=== PATIENT | female | born 1940 | race Caucasian/White ===

== ENCOUNTER → 2017-02-13 19:40 | Outpatient (CLI) | payer MEDICARE ==
[2011-04-02 23:24] VITALS: BMI 41.0
== END | disposition home or self-care (01) ==
LOC: D.LABREF 19:40
DX: M25.571 Pain in right ankle and joints of right foot (principal)

== ENCOUNTER → 2017-02-14 09:32 | Outpatient (CLI) | payer MEDICARE ==
[2011-04-02 23:24] VITALS: BMI 41.0
== END | disposition home or self-care (01) ==
LOC: D.US 09:32 → D.CT 11:00
DX: R60.0 Localized edema (principal); M25.571 Pain in right ankle and joints of right foot

== ENCOUNTER 2017-04-16 17:05 | Inpatient (IN) | payer MEDICARE ==
[~2017-04-16] VITALS: Ht 166.4 cm; Wt 105.0 kg
[2017-04-16 18:37] LABS: APPEARANCE CLEAR (CLEAR); BILIRUBIN NEGATIVE (NEGATIVE); COLOR YELLOW (YELLOW); GLUCOSE NEGATIVE (NEGATIVE); KETONE NEGATIVE (NEGATIVE); LEUKOCYTE ESTERASE TRACE (NEGATIVE); NITRITE NEGATIVE (NEGATIVE); PROTEIN NEGATIVE (NEGATIVE); UROBILINOGEN NORMAL (NORMAL)
[2017-04-16 18:38] LABS: WHITE CELLS - URINE 0-5 /hpf (0-5)
[2017-04-16 18:39] LABS: UDS - AMPHET NEGATIVE QUAL (NEGATIVE); UDS - BARB NEGATIVE QUAL (NEGATIVE); UDS - BENZO NEGATIVE QUAL (NEGATIVE); UDS - COCAINE NEGATIVE QUAL (NEGATIVE); UDS - METH NEGATIVE QUAL (NEGATIVE); UDS - OPIATE NEGATIVE QUAL (NEGATIVE); UDS - PCP NEGATIVE QUAL (NEGATIVE); UDS - THC NEGATIVE QUAL (NEGATIVE)
[2017-04-16 18:40] LABS: BACTERIA MODERATE /hpf (NONE SEEN); EPITHELIAL CELLS 0-5 /hpf (0-5)
[2017-04-16 18:41] LABS: BASOPHILS 0.2 % (0-2); EOSINOPHILS 1.3 % (0-7); HEMATOCRIT 38.7 % (36.0-48.0); HEMOGLOBIN 12.5 g/dL (12-16); IMMATURE GRANULOCYTES 0.3 % (0-5); LYMPHOCYTES 20.7 % (15-50); MCH 27.8 pg (26.0-34.0); MCHC 32.3 g/dL (31.0-37.0); MEAN PLATELET VOLUME 11.6 fL (7.4-10.4); MONOCYTES 7.9 % (2-11); NEUTROPHILS 69.6 % (40-80); PLATELET COUNT 242 10x3/uL (130-400); RDW 13.7 % (11.5-14.5); WBC 9.7 10x3/uL (4.8-10.8)
[2017-04-16 18:54] LABS: ALBUMIN 3.7 g/dL (3.4-5.0); ANION GAP 15.9 mmol/L (8-16); BILIRUBIN - TOTAL 0.2 mg/dL (0.2-1.3); CALCIUM 9.6 mg/dL (8.5-10.1); CARBON DIOXIDE 24.8 mmol/L (21.0-32.0); CREATININE - SERUM 1.1 mg/dL (0.6-1.3); POTASSIUM - SERUM 3.7 mmol/L (3.5-5.1); PROTEIN - SERUM 6.6 g/dL (6.4-8.2)
--- NOTE | 2017-04-17 00:43 | NUR ---
Recieved patient at 2245 from E[facility] accompanied by staff and her daughter, alert and oriented to self and being in a hospital, code word set, code status full code, physician aware, patient had become aggressive with spouse and verbally abusive, will continue to monitor.
[2017-04-17] MEDS ORDERED: LISINOPRIL10 MG PO (02:43)
[2017-04-17] MEDS ORDERED: FENOFIBRATE160 MG PO (02:43)
[2017-04-17] MEDS ORDERED: PROZAC20 MG PO (02:44)
[2017-04-17] MEDS ORDERED: K-DUR20 MEQ PO (02:44)
[2017-04-17] MEDS ORDERED: VITAMIN D250000 UNIT PO (02:46)
[2017-04-17] MEDS ORDERED: ULTRAM50 MG PO (02:46)
[2017-04-17] MEDS ORDERED: OCUVITE TABLET1 TA1 PO (02:47)
[2017-04-17] MEDS ORDERED: FISH OIL 1,2001 CAP PO (02:48)
[2017-04-17 04:53] VITALS: BP 149/61; BMI 37.9
[2017-04-17 07:09] LABS: BASOPHILS 0.1 % (0-2); EOSINOPHILS 1.3 % (0-7); HEMATOCRIT 36.6 % (36.0-48.0); HEMOGLOBIN 11.9 g/dL (12-16); IMMATURE GRANULOCYTES 0.2 % (0-5); LYMPHOCYTES 22.1 % (15-50); MCH 27.6 pg (26.0-34.0); MCHC 32.5 g/dL (31.0-37.0); MCV 84.9 fL (80.0-100.0); MEAN PLATELET VOLUME 11.3 fL (7.4-10.4); MONOCYTES 7.1 % (2-11); NEUTROPHILS 69.2 % (40-80); PLATELET COUNT 242 10x3/uL (130-400); RBC 4.31 10x6/uL (4.00-5.40); RDW 13.6 % (11.5-14.5); WBC 8.5 10x3/uL (4.8-10.8)
[2017-04-17 07:24] LABS: HEMOGLOBIN A1C 6.5 % (4.8-6.0)
[2017-04-17 07:42] LABS: ALBUMIN 3.3 g/dL (3.4-5.0); ANION GAP 12.6 mmol/L (8-16); BILIRUBIN - TOTAL 0.37 mg/dL (0.2-1.3); CALCIUM 8.9 mg/dL (8.5-10.1); CARBON DIOXIDE 25.8 mmol/L (21.0-32.0); CHOL - HDL RATIO 3.5 ratio (2.3-4.1); LDL-HDL RATIO 1.9 ratio (1.5-3.5); POTASSIUM - SERUM 3.4 mmol/L (3.5-5.1); PROTEIN - SERUM 6.4 g/dL (6.4-8.2); THYROID STIMULATING HORMONE 1.08 uIU/mL (0.36-3.74)
--- NOTE | 2017-04-17 09:10 | NUR ---
B) PATIENT IS AWAKE AND ALERT, SHE IS DEMANDING, SHE DID HAVE DIARRHEA AND SHE DOES SAY SHE WANTS TO BE TESTED FOR C-DIFF, DID PROVIDE PATIENT WITH A [place] HAT AND A SAMPLE CUP. PATIENT AMBULATES, SHE IS IN A MANIC PHASE OF HER BIPOLAR AND JUST TALKS AND TALKS. I) PROVIDE PRESCRIBED MEDS. R) PATIENT IS COMPLIANT WITH MEDS. P) CONTINUE PLAN OF CARE.
[2017-04-17 10:29] VITALS: BMI 37.8
--- NOTE | 2017-04-17 21:00 | NUR ---
RECEIVED IN DINING ROOM SITTING IN CHAIR AT THE TABLE WITH PEERS. AWAKE AND ALERT, PLEASANT AND TALKATIVE. NO AGGRESSION NOTED. ADMINISTER PRESCRIBED MEDS. VSS. MEDICATION COMPLIANT. MAINTAIN SAFETY PRECAUTIONS. WILL CONTINUE PLAN OF CARE.
[2017-04-17 22:04] VITALS: BP 124/58
[2017-04-18 06:15] LABS: RAPID PLASMA REAGIN Non Reactive (Non Reactive)
[2017-04-18 07:27] LABS: FOLATE (FOLIC ACID) - SERUM 10.6 ng/mL (>3.0); VITAMIN D 25 HYDROXY 35.6 ng/mL (30.0-100.0)
[2017-04-18 09:48] VITALS: BP 122/50
[2017-04-18 14:29] VITALS: Ht 166.4 cm; Wt 105.0 kg
--- NOTE | 2017-04-18 15:53 | NUR ---
Received this am alert and oriented to name and place but not situation. Redirect and reorient as need. Monitor for any changes in behavior. Encourage group participation and monitor safety. Compliant with medications, patient is hyperverbal, intrusive and very social with peers. No aggression. Cooperative with unit milieu. Continue plan of care.
--- NOTE | 2017-04-18 17:11 | HP ---
PATIENT: CHRISTIAN IGLESIAS MEDICAL RECORD: [id number] ACCOUNT: [id number] LOCATION:[facility] : 41 ADMISSION DATE: 04/16/17 HISTORY AND PHYSICAL EXAMINATION IDENTIFYING DATA: The patient is 77-year-old and she is admitted to the hospital on a voluntary basis. CHIEF COMPLAINT: Aggression. HISTORY OF PRESENT ILLNESS: The patient lives at home with her family. 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 She is largely his caregiver. The patient was diagnosed with dementia a year ago and in the past couple of months, things seemed to gotten significantly worse. She has had a personality change and now will often become verbally abusive and angry, which she very much denies. She says she is here because a dog jumped up on her and his nail clawed her leg and she had an infection in it. She does have a spot on her lower calf on the medial aspect about the size of a quarter and it is scabbed over and has a red margin, but it certainly does not look serious. She says that she is here to have that addressed. She denies that she has been aggressive with caregivers and denies that she has any memory trouble at all. She denies substance abuse and in fact is offended by the question. She denies that she would seek to harm herself or others. PAST MEDICAL HISTORY: Significant for obstructive sleep apnea and the patient wears a CPAP device. She has also had a hysterectomy and cataract surgery. PAST PSYCHIATRIC HISTORY: Denied by the patient, but there is a notation that she has had bipolar disorder. I am not sure if that is a mistake. Her home medications do not include a mood stabilizer, but it does include an antidepressant. This will require some outside information to clarify this. ALLERGIES: No known drug allergies. CURRENT MEDICATIONS: Lisinopril, Prozac, potassium, Ultram and multiple vitamins. SOCIAL HISTORY: The patient is . She has 3 adult children and a large number of grandchildren and even some great grandchildren. 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 MENTAL STATUS EXAMINATION: The patient is awake, alert and oriented partially. Her mood is anxious. Her affect is constricted. Thought processes are disorganized and she is hyperverbal. She denies that she would seek to harm herself or others as well as overt psychotic symptoms. ASSETS: Supportive family members. LIABILITIES: Limited insight. DIAGNOSTIC IMPRESSION: AXIS I: Bipolar disorder by history. Dementia, type uncertain. AXIS II: Deferred. HISTORY AND PHYSICAL [id number] IGLESIAS,WADE AXIS III: Diabetes and hypertension. AXIS IV: Obstructive sleep apnea. Moderate stressors. AXIS V: Global assessment of functioning is 30. PLAN: At this time, the patient is admitted to the hospital for a comprehensive medical, psychological, and social evaluation. She will be treated with both mood stabilizing and memory enhancing medications as deemed appropriate. Her long-term prognosis is guarded. TRANSINT:[id number] Voice Confirmation ID: [id number] DOCUMENT ID: [id number] SILVERIO LARRY MD at 1711 CC: [id number] DICTATION DATE: 04/17/17 1430 CONCRETE PILE DRIVER OPERATOR: 04/17/[address] [facility] IN [facility] [address] [place] [address]
[2017-04-18 19:30] VITALS: BP 137/63
--- NOTE | 2017-04-19 02:03 | NUR ---
B) Recieved patient in the day room, alert and oriented to self and being in a hospital, calm and watching TV, I) Administered perscribed medications, monitored for safety, PRN Tramadol 50 mg given at 0142 for back pain, R) Medication compliant, resting now in bed, P) Continue plan of care.
--- NOTE | 2017-04-19 08:16 | NUR ---
B) PATIENT IS AWAKE AND ALERT, SHE IS ORIENTED TO PERSON AND PLACE, SHE FORGETS TIME INTERMITTANTLY. SHE IS OVERLY TALKATIVE AND TELLS EVERYONE ABOUT EVERYTHING, SHE ALSO LISTENS TO EVERY CONVERSATION AND INTERJECTS HER OPINION. SHE NEEDS MUCH REDIRECTION TO CARE FOR HERSELF TO GET BETTER. I) PROVIDE PRESCRIBED MEDS, REDIRECT NEEDED. R) PATIENT IS COMPLIANT WITH MEDS. SHE C/O MORE DIARRHEA, DID CHECK HER ROOM SHE HAD 3 DIAPERS WITH LOOSE BM, NOT DIARRHEA, BUT SHE DID HAVE SOME AREAS ON THE BATHROOM FLOOR THAT WERE LOOSE. DID PROVIDE IMODIUM 2 MG PO NOW. P) CONTINUE POC.
[2017-04-19 08:53] VITALS: BP 158/77
--- NOTE | 2017-04-19 09:16 | NUR ---
PATIENT HAS NOT MENTIONED ANYMORE DIARRHEA.
--- NOTE | 2017-04-19 11:00 | NUR ---
PATIENTS DAUGHTER CALLED AND SAID THEY WOULD NOT BE VISITING TODAY. BUT THAT THEY WILL CALL AT 5:30.
--- NOTE | 2017-04-19 11:51 | PN ---
PATIENT:CHRISTIAN IGLESIAS MEDICAL RECORD: [id number] LOCATION:[facility] ADMISSION DATE: 04/16/17 PROGRESS NOTE DATE OF SERVICE: 04/18/2017 SUBJECTIVE: The patient's case was discussed with staff. She has no new complaint. OBJECTIVE: The patient is in good behavioral control, but quite impaired cognitively. In fact, she was tested by Dr. Ta, who scored her at 13 out of 30 on the [place] scale. This places her in the severe range and the findings are consistent with Alzheimer's dementia. In fact, the test results are consistent with what I see objectively. ASSESSMENT: No change in diagnoses. PLAN: Current medicines have been reviewed and will be maintained. Long-term prognosis is guarded. TRANSINT:[id number] Voice Confirmation ID: [id number] DOCUMENT ID: [id number] SILVERIO LARRY MD at 1151 CC: [id number] DICTATION DATE: 04/18/17 171 CUSTOMS INSPECTOR: 04/18/17 2344 ADM IN [facility] [address] [place] [address]
[2017-04-19 16:05] LABS: APPEARANCE CLEAR (CLEAR); BILIRUBIN NEGATIVE (NEGATIVE); COLOR YELLOW (YELLOW); GLUCOSE NEGATIVE (NEGATIVE); KETONE NEGATIVE (NEGATIVE); LEUKOCYTE ESTERASE NEGATIVE (NEGATIVE); NITRITE NEGATIVE (NEGATIVE); PROTEIN NEGATIVE (NEGATIVE); SPECIFIC GRAVITY 1.015 (1.005-1.020); UROBILINOGEN NORMAL (NORMAL)
[2017-04-19 19:30] VITALS: BP 138/76
--- NOTE | 2017-04-19 21:00 | NUR ---
RECEIVED IN DAYROOM, ALERT AND ORIENTED, IN PLEASANT MOOD. PROVIDE PRESCRIBED MEDS. VSS. COMPLIANT WITH MEDS. AMBULATING INDEPENDENTLY. DENIES ANY DIARRHEA TODAY. WILL CONTINUE TO MONITOR.
[2017-04-20 07:00] VITALS: BP 170/78
--- NOTE | 2017-04-20 14:06 | NUR ---
B) PATIENT IS AWAKE AND ALERT SHE IS LESS MANIC, SHE IS EASIER TO REDIRECT. SHE AMBULATES INDEPENDENTLY. SHE C/O BACK PAIN. PATIENT WAS PROVIDED A LIDOCAINE PATCH AND IT WAS JUST APPLIED. I) PROVIDE PRESCRIBED MEDS. R) PATIENT IS COMPLIANT WITH MEDS AND UNIT MILIEU. P) CONTINUE POC.
[2017-04-20 21:17] VITALS: BP 160/70
--- NOTE | 2017-04-21 03:40 | NUR ---
B) Recieved patient in the day room, alert and oriented , calm and cooperative, social with peers and staff, I) Administered perscribed medications, monitored for safety, R) Medication compliant, resting now quietly, P) Continue plan of care.
[2017-04-21 07:58] VITALS: BP 149/68
[2017-04-21 11:09] VITALS: BP 134/52
--- NOTE | 2017-04-21 11:54 | NUR ---
Received this am alert and oriented times three. Very social with staff and peers. Redirect for any inappropriate behavior. Monitor for any acute change in behavior. Monitor for safety. No aggression, has been hyperverbal continuosly conversing with peers attmepting to give them directions about thier care. Pleasant and cooperative with care. Safety maintained. Continue plan of care.
--- NOTE | 2017-04-21 14:05 | PN ---
PATIENT:CHRISTIAN IGLESIAS MEDICAL RECORD: [id number] LOCATION:[facility] ADMISSION DATE: 04/16/17 PROGRESS NOTE DATE OF SERVICE: 04/19/2017 SUBJECTIVE: The patient's case was discussed with staff. She has no new complaint. OBJECTIVE: The patient is in good behavioral control with limited insight about her condition. She tolerates her medicines well. ASSESSMENT: No change in diagnoses. PLAN: Supportive and educational interventions were made. Mcc prognosis is guarded. TRANSINT:[id number] Voice Confirmation ID: [id number] DOCUMENT ID: [id number] SILVERIO LARRY MD at 1405 CC: [id number] DICTATION DATE: 04/19/17 1155 DIRECTOR MEDICAL AFFAIRS: 04/19/17 1202 ADM IN [place] [id number] [place] [id number]
--- NOTE | 2017-04-21 19:46 | NUR ---
RECEIVED IN DAYROOM. SITTING WITH A PEER SOCIALIZING. ALERT AND ORIENTED X3. CALM AND COOPERATIVE WITH CARE AND ASSESSMENTS. NO SIGNS OF AGGRESSION. REDIRECT NEEDED FOR BEHAVIOUR. CONTINUES TO SOCIALIZE WITH PEERS. CONTINUE PLAN OF CARE
[2017-04-21 20:13] VITALS: BP 177/70
[2017-04-22 07:43] VITALS: BP 137/52
--- NOTE | 2017-04-22 14:44 | PN ---
PATIENT:CHRISTIAN IGLESIAS MEDICAL RECORD: [id number] LOCATION:[facility] ADMISSION DATE: 04/16/17 PROGRESS NOTE DATE OF SERVICE: 04/21/2017 SUBJECTIVE: The patient's case was discussed with staff. She has no new complaint. OBJECTIVE: The patient denies intent to harm herself or others. She generally tolerates her medicines well. ASSESSMENT: No change in diagnoses. PLAN: Current medicines and therapies have been reviewed and will be maintained. Long-term prognosis is guarded. TRANSINT:[id number] Voice Confirmation ID: [id number] DOCUMENT ID: [id number] SILVERIO LARRY MD at 1444 CC: [id number] DICTATION DATE: 04/21/17 1441 FACSIMILE OPERATOR: 04/21/17 1757 ADM IN [place] [id number] [place] [address]
[2017-04-22] MEDS ORDERED: LISINOPRIL10 MG PO (14:49)
[2017-04-22] MEDS ORDERED: NAMENDA5 MG PO (14:50)
[2017-04-22] MEDS ORDERED: DEPAKOTE500 MG PO (14:50)
[2017-04-22] MEDS ORDERED: TRICOR145 MG PO (14:50)
[2017-04-22] MEDS ORDERED: ZYPREXA2.5 MG PO (14:50)
[2017-04-22] MEDS ORDERED: LIDODERM 5 %1 PATCH TRANSDERM (14:51)
--- NOTE | 2017-04-22 16:11 | NUR ---
Alert and oriented times three. Redirect and reorient as need. No acute changes in behavior. Very social with peers and staff. No aggression. Calm and cooperative. Safety maintained. Continue plan of care.
[2017-04-22 19:30] VITALS: BP 132/89; BP 155/67
--- NOTE | 2017-04-22 23:04 | NUR ---
RECEIVED IN BEDROOM. STANDING AT SINK GETTING READY FOR BED. IN GOOD SPIRITS. CALM AND COOPERTIVE WITH CARE AND ASSESSMENTS. NO SIGNS OF AGGRESSION. ENCOURAGE TO EXPRESS NEEDS. RESTING IN BED EYES CLOSED AT THIS TIME. CONTINUE PLAN OF CARE
[2017-04-23 08:14] VITALS: BP 174/74
[2017-04-23 11:30] VITALS: BP 154/54
--- NOTE | 2017-04-23 13:12 | NUR ---
Received this am alert and oriented times three, smiling and conversing with peers, she has told everyone that she is being discharged. Monitor for any acute changes in behavior. Cooperative with care, with no behavior changes, no manic behavior observed. Safety maintained. Continue plan for disharge today.
== END 2017-04-23 16:35 | disposition home or self-care (01) | DRG 885 ==
LOC: D.ER 17:05 → D.PSYCH 22:09
PROVIDERS: Nurse Practitioner Acute Care; ADMIT Psychiatry & Neurology Psychiatry
DX: F31.9 Bipolar disorder, unspecified (principal); F03.90 Unspecified dementia, unspecified severity, without behavioral disturbance, psychotic disturbance, mood disturbance, and anxiety; M54.5 Low back pain; R19.7 Diarrhea, unspecified; G47.33 Obstructive sleep apnea (adult) (pediatric); E66.9 Obesity, unspecified; E11.9 Type 2 diabetes mellitus without complications; I10 Essential (primary) hypertension; E55.9 Vitamin D deficiency, unspecified; E78.5 Hyperlipidemia, unspecified

== ENCOUNTER → 2017-04-16 19:30 | Outpatient (CLI) | payer MEDICARE ==
[2011-04-02 23:24] VITALS: BMI 41.0
[~2017-04-16 19:30] MED LIST: FENOFIBRATE160 MG PO; FISH OIL 1,2001 CAP PO; K-DUR20 MEQ PO; LISINOPRIL10 MG PO; OCUVITE TABLET1 TA1 PO; PROZAC20 MG PO; ULTRAM50 MG PO; VITAMIN D250000 UNIT PO
== END | disposition home or self-care (01) ==
LOC: D.LABREF 19:30
DX: L98.499 Non-pressure chronic ulcer of skin of other sites with unspecified severity (principal)

== ENCOUNTER → 2017-05-07 19:12 | Outpatient (CLI) | payer MEDICARE ==
[2017-04-18 14:29] VITALS: BMI 37.9
[~2017-05-07 19:12] MED LIST changes: +DEPAKOTE500 MG PO; +LIDODERM 5 %1 PATCH TRANSDERM; +NAMENDA5 MG PO; +TRICOR145 MG PO; +ZYPREXA2.5 MG PO
== END | disposition home or self-care (01) ==
LOC: D.LABREF 19:12
DX: Z51.81 Encounter for therapeutic drug level monitoring (principal); Z79.899 Other long term (current) drug therapy

== ENCOUNTER → 2017-09-25 19:00 | Outpatient (CLI) | payer MEDICARE ==
[2017-04-18 14:29] VITALS: BMI 37.9
[2017-09-25 19:22] LABS: APPEARANCE HAZY (CLEAR); BACTERIA MODERATE /hpf (NONE SEEN); BILIRUBIN NEGATIVE (NEGATIVE); COLOR YELLOW (YELLOW); GLUCOSE NEGATIVE (NEGATIVE); KETONE NEGATIVE (NEGATIVE); MUCUS >1+ /lpf (NONE SEEN); NITRITE NEGATIVE (NEGATIVE); PROTEIN NEGATIVE (NEGATIVE); RED CELLS - URINE 0-5 /hpf (0-5); SPECIFIC GRAVITY 1.025 (1.005-1.020); UROBILINOGEN NORMAL (NORMAL)
== END | disposition home or self-care (01) ==
LOC: D.LABREF 19:00
PROVIDERS: Family Medicine
DX: N39.0 Urinary tract infection, site not specified (principal)

== ENCOUNTER → 2017-10-02 21:47 | Outpatient (CLI) | payer MEDICARE ==
[2017-04-18 14:29] VITALS: BMI 37.9
== END | disposition home or self-care (01) ==
LOC: D.LABREF 21:47
DX: I87.311 Chronic venous hypertension (idiopathic) with ulcer of right lower extremity (principal)